=== PATIENT | male | born 1990 | race Caucasian/White ===

== ENCOUNTER 2020-03-18 12:40 | Day surgery (SDC) | payer OTHER ==
[~2020-03-18] VITALS: Ht 182.9 cm; Wt 60.4 kg
[~2020-03-18 12:40] MED LIST: BUPIVACAINE/PF 0.5% ONE
[2020-03-18 13:16] VITALS: BP 130/78
[2020-03-18] MEDS ORDERED: LACTATED RINGERS 1,000 ML IV SCH (13:24)
[2020-03-18] MEDS ORDERED: CHLORHEXIDINE 15 ML UDC MM STA (13:25)
[2020-03-18] MEDS ORDERED: IBUP-1223 PO (13:49)
[2020-03-18] MEDS ORDERED: MIDAZOLAM 1 MG/ML, 2ML ONE (13:53)
[2020-03-18] MEDS ORDERED: FENTANYL PF 250 MCG/5ML ONE ×2 (13:53→16:16)
[2020-03-18] MEDS ORDERED: MEPERIDINE/PF 25MG/0.5ML IVPush PRN (14:00)
[2020-03-18] MEDS ORDERED: ONDANSETRON 2MG/ML, 2ML IVPush PRN (14:00)
[2020-03-18] MEDS ORDERED: EPHEDRINE 50 MG/ML, 1ML IVPush PRN (14:00)
[2020-03-18] MEDS ORDERED: PROMETHAZINE 25 MG/ML, 1ML IVPush PRN (14:00)
[2020-03-18] MEDS ORDERED: hydrALAzine 20 MG/ML, 1ML IV PRN (14:00)
[2020-03-18] MEDS ORDERED: HYDROmorphone 1 MG/ML, 1ML INJ IVPush PRN (14:00)
[2020-03-18] MEDS ORDERED: OXYcodone 5 MG/5 ML ORAL.SOL UDC PO PRN (14:00)
[2020-03-18] MEDS ORDERED: LABETALOL 5MG/ML, 20ML IV PRN (14:00)
[2020-03-18] MEDS ORDERED: ACETAMINOPHEN 500 MG TABLET PO ONE (14:00)
[2020-03-18] MEDS ORDERED: ONDANSETRON 2MG/ML, 2ML ONE (14:39)
[2020-03-18] MEDS ORDERED: SUCCINYLCHOLINE 20 MG/ML, 10ML ONE (14:39)
[2020-03-18] MEDS ORDERED: DEXAMETHASONE 4 MG/ML, 1ML ONE (14:39)
[2020-03-18] MEDS ORDERED: PROPOFOL 10 MG/ML, 20ML ONE (14:39)
[2020-03-18] MEDS ORDERED: CEFAZOLIN 1,000 MG ONE (14:39)
[2020-03-18] MEDS ORDERED: EPINEPHRINE 1 MG/ML, 1ML ONE (14:43)
[2020-03-18] MEDS ORDERED: BUPIVACAINE/PF 0.5% ONE (14:43)
[2020-03-18] MEDS ORDERED: LIDOCAINE-MPF 2% ,5ML ONE (14:59)
[2020-03-18] MEDS ORDERED: KETOROLAC 30 MG/1 ML ONE (14:59)
[2020-03-18] MEDS ORDERED: MEPERIDINE/PF 25MG/ML,1ML ONE (16:44)
[2020-03-18] MEDS ORDERED: FENTANYL PF 100 MCG/2ML ONE (16:51)
[2020-03-18] MEDS ORDERED: OXYcodone 5 MG/5 ML ORAL.SOL UDC ONE (16:52)
[2020-03-18] MEDS: FENTANYL PF 100 MCG/2ML IV PRN ×2 (17:12→17:20)
[2020-03-18] MEDS ORDERED: HYDROmorphone 2 MG/ML, 1ML ONE (17:58)
== END 2020-03-18 18:50 | disposition home or self-care (01) ==
LOC: OUT 12:40
PROVIDERS: ATTEND Orthopaedic Surgery Hand Surgery
DX: S62.141A Displaced fracture of body of hamate [unciform] bone, right wrist, initial encounter for closed fracture (principal); S62.316A Displaced fracture of base of fifth metacarpal bone, right hand, initial encounter for closed fracture; X58.XXXA Exposure to other specified factors, initial encounter; Y93.89 Activity, other specified; Y92.89 Other specified places as the place of occurrence of the external cause; Y99.8 Other external cause status; Z20.828 Contact with and (suspected) exposure to other viral communicable diseases; Z72.89 Other problems related to lifestyle; F17.210 Nicotine dependence, cigarettes, uncomplicated; Z79.899 Other long term (current) drug therapy
CPT/HCPCS: 25645; 26608; 36415; 73130; 76000; 87635; J0330; J0690; J1100; J1170; J1885; J2175; J2250; J2405; J2704; J3010; C1713; J0171

== ENCOUNTER 2020-11-01 18:34 | Emergency (ER) | payer OTHER ==
[~2020-11-01] VITALS: Ht 182.9 cm; Wt 59.3 kg
[~2020-11-01 18:34] MED LIST changes: -BUPIVACAINE/PF 0.5% ONE; +IBUP-1223 PO
[2020-11-01 18:45] VITALS: BP 136/79
== END 2020-11-01 20:31 | disposition home or self-care (01) ==
LOC: ED 20:25
DX: S60.221A Contusion of right hand, initial encounter (principal); X58.XXXA Exposure to other specified factors, initial encounter; Y93.89 Activity, other specified; Y92.009 Unspecified place in unspecified non-institutional (private) residence as the place of occurrence of the external cause; Y99.8 Other external cause status
CPT/HCPCS: 29125; 99283